=== PATIENT | male | born 1960 | race Caucasian/White ===

== ENCOUNTER → 2024-03-17 13:23 | Outpatient (REF) | payer OTHER, SELFPAY | LOC: RCS 13:23 | PROVIDERS: ATTENDING PHYSICIAN Internal Medicine Interventional Cardiology | DX: I25.10 Atherosclerotic heart disease of native coronary artery without angina pectoris (principal); I10 Essential (primary) hypertension; I25.2 Old myocardial infarction | CPT/HCPCS: 93017; 93350 ==

== ENCOUNTER → 2025-07-16 09:53 | Outpatient (REF) | payer OTHER, SELFPAY | LOC: RCS 09:53 | PROVIDERS: ATTENDING PHYSICIAN Internal Medicine Interventional Cardiology; FAMILY PHYSICIAN Family Medicine | DX: I10 Essential (primary) hypertension (principal); I25.2 Old myocardial infarction | CPT/HCPCS: 93306 ==